=== PATIENT | female | born 2000 | race Caucasian/White ===

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

== ENCOUNTER 2021-03-29 21:22 | Emergency (ER) | payer OTHER | END 2021-03-29 22:14 | disposition home or self-care (01) | LOC: ERS 21:22 | DX: S93.402A Sprain of unspecified ligament of left ankle, initial encounter (principal); I10 Essential (primary) hypertension; W17.2XXA Fall into hole, initial encounter ==

== ENCOUNTER 2021-09-17 18:23 | Emergency (ER) | payer OTHER ==
[2021-09-17] MEDS ORDERED: Ketorolac Tromethamine 30 MG/ML VIAL ONE (22:34)
== END 2021-09-17 23:03 | disposition home or self-care (01) ==
LOC: ERS 18:23
DX: R51.9 Headache, unspecified (principal)
CPT/HCPCS: 70450; 96372; J1885

== ENCOUNTER 2022-03-27 20:39 | Emergency (ER) | payer OTHER | END 2022-03-27 21:59 | disposition home or self-care (01) | LOC: ERS 20:39 | DX: S09.90XA Unspecified injury of head, initial encounter (principal); W22.8XXA Striking against or struck by other objects, initial encounter | CPT/HCPCS: 99283 ==

== ENCOUNTER 2022-04-10 21:14 | Emergency (ER) | payer OTHER, SELFPAY | END 2022-04-10 22:16 | disposition home or self-care (01) | LOC: ERS 21:14 | DX: F07.81 Postconcussional syndrome (principal); R51.9 Headache, unspecified; R47.89 Other speech disturbances | CPT/HCPCS: 99283 ==

== ENCOUNTER 2022-07-07 13:17 | Emergency (ER) | payer MEDICAID, SELFPAY ==
[2022-07-07] MEDS ORDERED: Acetaminophen 500 MG TAB ONE (18:54)
[2022-07-07] MEDS ORDERED: Ketorolac Tromethamine 30 MG/ML VIAL ONE (18:54)
[2022-07-07] MEDS ORDERED: Prochlorperazine Maleate 5 MG TAB ONE (18:54)
[2022-07-07] MEDS ORDERED: diphenhydrAMINE 50 MG CAP ONE (18:54)
== END 2022-07-07 19:04 | disposition home or self-care (01) ==
LOC: ERS 13:17
DX: S09.90XA Unspecified injury of head, initial encounter (principal); W20.8XXA Other cause of strike by thrown, projected or falling object, initial encounter
CPT/HCPCS: 70450; 96372; J1885; Q0164

== ENCOUNTER 2022-12-02 17:51 | Emergency (ER) | payer OTHER, MEDICAID ==
[2022-12-02] MEDS ORDERED: Ketorolac Tromethamine 30 MG/ML VIAL ONE (20:24)
== END 2022-12-02 22:40 | disposition home or self-care (01) ==
LOC: ERS 17:51
DX: R07.81 Pleurodynia (principal); V49.9XXA Car occupant (driver) (passenger) injured in unspecified traffic accident, initial encounter
CPT/HCPCS: 71045; 76856; 96372; J1885

== ENCOUNTER 2023-01-28 20:02 | Emergency (ER) | payer OTHER, SELFPAY | END 2023-01-28 20:45 | disposition home or self-care (01) | LOC: ERS 20:02 | DX: T43.225A Adverse effect of selective serotonin reuptake inhibitors, initial encounter (principal) | CPT/HCPCS: 36416; 93005 ==

== ENCOUNTER 2023-02-01 20:33 | Emergency (ER) | payer OTHER | END 2023-02-02 00:08 | disposition home or self-care (01) | LOC: ERS 20:33 | DX: S93.401A Sprain of unspecified ligament of right ankle, initial encounter (principal); W18.41XA Slipping, tripping and stumbling without falling due to stepping on object, initial encounter ==

== ENCOUNTER 2023-06-07 20:32 | Emergency (ER) | payer OTHER ==
[2023-06-07] MEDS ORDERED: HYDROcodone/Acetaminophen 5/325 mg Tablet ONE (23:59)
== END 2023-06-08 06:06 | disposition home or self-care (01) ==
LOC: ERS 20:32
DX: M25.512 Pain in left shoulder (principal)